=== PATIENT | female | born 1950 | race Hispanic/Latino ===

== ENCOUNTER → 2019-07-02 | Outpatient (CLI) | payer MEDICARE | END | disposition home or self-care (01) | LOC: OIH 13:22 | PROVIDERS: ATTEND Internal Medicine | DX: M77.32 Calcaneal spur, left foot (principal); M19.072 Primary osteoarthritis, left ankle and foot; M79.89 Other specified soft tissue disorders | CPT/HCPCS: 73620 ==

== ENCOUNTER → 2025-06-01 | Outpatient (CLI) | payer MEDICARE ==
--- NOTE | 2025-06-01 18:09 | HMCIMG ---
EXAM: CR Chest, 2 View. CLINICAL HISTORY: ASSESS FOR ATHEROSCLEROSIS OF AORTA COMPARISON: None provided. FINDINGS: LUNGS: The lungs show no infiltrate or other acute finding. PLEURAL SPACES: No evidence of pleural effusion or pneumothorax. MEDIASTINUM: Cardiac size and mediastinal contours within normal limits. BONES: No acute osseous abnormality. IMPRESSION: No acute cardiopulmonary pathology is evident. Aorta is atherosclerotic /[place]
== END | disposition home or self-care (01) ==
LOC: RAH 15:00
PROVIDERS: ATTEND Internal Medicine
DX: I70.0 Atherosclerosis of aorta (principal); R07.89 Other chest pain
CPT/HCPCS: 71046

== ENCOUNTER 2025-08-18 06:00 | Observation (INO) | payer MEDICARE ==
[2025-08-17 13:44] VITALS: BP 136/60; PULSE 81; RESP 18; TEMP 98.2
--- NOTE | 2025-08-17 13:44 | NUR ---
PREOP PT INSTRUCTED ON INCENTIVE SPIROMETRY BY NOEMY ELIZABETH
[2025-08-17 14:07] LABS: INR 0.99 (0.85-1.15)
[2025-08-17 14:08] LABS: CREATININE 0.9 mg/dL (0.5-1.0); GLOMERULAR FILTR. RATE CALC 67.0 mL/min (>90); GLUCOSE,RANDOM 55.0 mg/dL (70-105); SODIUM SERUM 142.0 mmol/L (136-145); UREA NITROGEN, BLOOD 18.0 mg/dL (7-18)
[2025-08-18] VITALS (25 sets, daily range): BP systolic 100–133; BP diastolic 50–83; PULSE 61–89; RESP 17–21; TEMP 97–98.2; O2SAT 99
[~2025-08-18] VITALS: Ht 160 cm; Wt 81.6 kg
[2025-08-18] MEDS: 0.9%NACL 1000ML 1,000 ML IV ONE (07:18)
[2025-08-18] MEDS ORDERED: PROMETHAZINE HCL 25 MG/ML 1ML AMPULE IM PRN (07:30)
[2025-08-18] MEDS ORDERED: MIDAZOLAM HCL 1 MG/ML 2ML VIAL ONE (09:22)
[2025-08-18] MEDS ORDERED: LIDOCAINE PF 100MG/5ML (2%) SYRINGE 5ML ONE (09:28)
[2025-08-18] MEDS ORDERED: CALCIUM CARB 500MG PO PRN (10:00)
[2025-08-18] MEDS ORDERED: CYCLOBENZAPRINE HCL 10 MG TABLET PO PRN (10:00)
[2025-08-18] MEDS ORDERED: FE FUMARATE/FA/MV, MIN COMB#15 1 TAB PO PRN (10:00)
[2025-08-18] MEDS ORDERED: PoTASSium chloRIDE 20MEQ ER 20 MEQ ERTAB PO PRN (10:00)
[2025-08-18] MEDS ORDERED: GLYCOPYRROLATE 0.2 MG/ML 5 ML VIAL ONE ×2 (10:17→12:34)
[2025-08-18] MEDS: TRANEXAMIC ACID 1000MG/10ML ONE (10:20)
[2025-08-18] MEDS ORDERED: NEOSTIGMINE METHYLSULFATE 1MG/ML IV ONE (12:33)
[2025-08-18] MEDS: ARTIFICAL TEARS SOL 15 ML OP SCH (13:00)
[2025-08-18] MEDS: DEXTROSE 50%-WATER 50 ML DISP.SYRIN IV ONE (13:16)
--- NOTE | 2025-08-18 14:13 | HMCIMG ---
EXAM: CR RIGHT SHOULDER, 1 VIEW CLINICAL HISTORY: Shoulder surgery COMPARISON: CXR dated 06-01-2025 TECHNIQUE: 1 view of the right shoulder. FINDINGS: Bones: There is reduced bone density. Total arthroplasty of the right shoulder is seen. No hardware break or periprosthetic lucency is seen. No fracture or subluxation of visualized bones and ribs. No sclerotic or destructive changes observed. Joints: Osteophytes are seen at the right acromioclavicular joint. Lucency projected over the right shoulder joint with widening of joint space. Soft tissues: Lucency projected over distal clavicle and tracking towards base of neck Mild soft tissue swelling in deltoid region. Included chest: The right costophrenic angle is blunt, suggestive of mild pleural effusion. IMPRESSION: 1. Total replacement of the right shoulder with no hardware break or periprosthetic lucency. 2. Lucency projected over the right shoulder joint and tracking towards base of neck - may represent post op shoulder joint effusion and soft tissue edematous changes. 3. As compared to CXR dated 06-01-2025, there is mild blunting of the right CP angle may represent a mild right pleural effusion. 4. Mild degenerative changes at acromioclavicular joint. /[place]
[2025-08-18] MEDS: 0.9%NACL 1000ML 1,000 ML IV SCH (15:05)
--- NOTE | 2025-08-18 20:24 | OP ---
Operative Note: DATE OF PROCEDURE: 08/18/25 SURGEON: KAN RUIZ MD CHICK SEXER: LORNA Gatica ANESTHESIA: General and interscalene block ANESTHESIOLOGIST/SOLUTIONS MANAGER: BRIANA Rajan PREOPERATIVE DIAGNOSIS: Right glenohumeral arthritis POSTOPERATIVE DIAGNOSIS: Right glenohumeral arthritis PROCEDURE: Right reverse total shoulder arthroplasty ESTIMATED BLOOD LOSS: 200 cc COMPLICATIONS: None DRAINS: None SPECIMENS: resected bone from the humeral head not sent to pathology IMPLANTS: [employer] size 10 x 32 FX V135 humeral stem, plus three stability 135/145 cup, 32 mm centered glenosphere, +3 mm lateralized base plate with one compression and two locking screws, single cortical locking screw in the stem INDICATIONS: 74-year-old female with right shoulder pain and dysfunction secondary superior glenohumeral osteoarthritis. The patient was failing conservative management. After discussion the risk, benefits, and alternatives, the patient voluntarily agreed to undergo the aforementioned procedure. DESCRIPTION OF PROCEDURE: Patient was properly identified in the preoperative holding area. Surgical site marking was verified and surgery consent reviewed. The patient was then taken to the operating room and placed in supine position on the OR table. After induction of general anesthesia, preoperative antibiotics were given, all bony prominences were well-padded as the patient was transitioned into beachchair positioning. The right upper extremity was then prepped and draped in usual sterile fashion. Surgical time out was done verifying correct surgery, side, site, and location to be performed. We then began the procedure by making approximately 12 cm long incision over the deltopectoral interval using a 10 blade. Hemostasis was performed using Bovie electrocautery. We then dissected through the subcutaneous tissues using the Metzenbaums to identify our deltopectoral interval. We then mobilized the cephalic vein laterally as we opened the interval. We then incised the clavipectoral fascia just lateral to the conjoined tendon and placed our retractor deep to this. We identified the long head of the biceps tendon and performed a tenotomy. We then began elevating the subscapularis off of its insertion on the humeral head using Bovie electrocautery. With external rotation we brought the humeral head into view and released the capsule at the inferior aspect of the head. We released a small portion of the pectoralis off of its insertion on the humerus to allow for better exposure. We then placed our retractors protecting soft tissue. At this point we began using the sounding instruments, hand reaming up to a size 12. We pinned the cutting guide off of the handle in 30 degrees of version and performed the humeral osteotomy. We then broached up to a size 10 x 32. The calcar planer was used to clean up our cut. We placed a protective cap on the cut surface of the humerus and subluxated the humerus posteriorly. We then placed our retractors around the glenoid to provide adequate exposure of the glenoid. The labrum and long head biceps tendon were resected with Bovie electrocautery. We then used to the guide to insert our central guidepin ensuring we were far enough inferior on the glenoid face. Over the central gu idepin we reamed with the all-in-one reamer for the central peg and the faceplate. We then used the screen handler to clean up the remaining soft tissue and bone. We then thoroughly irrigated out the glenoid bone and impacted into position the glenoid baseplate. We then placed 1 compression screw and 2 locking screw in the baseplate. We noted using a freer elevator that the base plate was appropriately seated. We elected to use a 32 centered glenosphere. Glenosphere was then seated in standard fashion with the setscrew tightened. We then removed our retractors and dislocated the humerus once more. We remove the protective cap from the cut end of the humerus. We then elected to trial with a size +3 135/145 polyethylene. With this in place, we reduced the humerus and noted good stable range of motion. We then dislocated the humerus and remove the trial components. We thoroughly irrigated out the bone. We seated the final stem implant and trialed once more. The size +3 polyethylene was still appropriate so we opened the final polyethylene and implanted this in standard fashion. We then reduced the humerus once more and ensured appropriate range of motion and stability. We checked the position of the components under fluoroscopy and found him to be appropriate. We thoroughly irrigated out the wound. We then began loosely repairing the deltopectoral interval using #2 Ethibond. Subcutaneous tissue was approximated using 2-0 Vicryl. The skin was closed using a running subcuticular 3-0 Monocryl with Dermabond applied. An Optifoam dressing was applied once the Dermabond dried. The patient was then placed into a sling, awakened from anesthesia, and taken recovery room in stable condition. KAN RUIZ MD Aug 18, 2025 20:24
[2025-08-18] MEDS: VERAPAMIL HCL 240 MG SRTAB PO SCH (20:51)
[2025-08-18] MEDS: GLIMEPIRIDE 2 MG TABLET PO SCH (20:52)
[2025-08-18] MEDS: LATANOPROST 2.5 ML DROPS OP SCH (21:39)
[2025-08-19] VITALS: BP 125/80; PULSE 85; RESP 18; TEMP 98.3
[2025-08-19 04:00] VITALS: BP 116/61; PULSE 85; RESP 18; TEMP 98.2
[2025-08-19 04:45] LABS: NUCLEATED RED BLOOD CELLS 0.0 % (0.0-0.19); PLATELET COUNT (AUTO) 246.0 K/uL (130-400); RED BLOOD CELL COUNT(AUTO) 3.5 MIL/uL (4.00-5.50); RED CELL DISTRIBUTION WIDTH 15.0 % (11.0-15.5); WHITE BLOOD COUNT (AUTO) 7.2 K/uL (4.8-10.8)
[2025-08-19 04:59] LABS: CREATININE 1.0 mg/dL (0.5-1.0); GLOMERULAR FILTR. RATE CALC 59.0 mL/min (>90); GLUCOSE,RANDOM 53.0 mg/dL (70-105); SODIUM SERUM 140.0 mmol/L (136-145); UREA NITROGEN, BLOOD 16.0 mg/dL (7-18)
--- NOTE | 2025-08-19 05:17 | NUR ---
FBS 54, PATIENT GIVEN ORANGE JUICE WITH CRACKERS
--- NOTE | 2025-08-19 06:53 | NUR ---
rbs 112
[2025-08-19 08:00] VITALS: O2SAT 98
[2025-08-19 08:07] VITALS: BP 123/67; PULSE 86; RESP 18; TEMP 98.2
--- NOTE | 2025-08-19 08:34 | PN ---
Ortho postop day one. This morning patient is awake alert and oriented she is still in bed. I have asked the patient to try to spend the majority of her day out of bed and she understood we will be asking nursing to assist her. Vital signs have remained stable. Afebrile. Voiding on her own. Laboratory results reviewed. Noted to have a drop in hemoglobin and hematocrit as expected after reverse shoulder arthroplasty. Patient is currently asymptomatic. We will continue to address as necessary with the protocol. Operative findings discussed with the patient. Dressing is intact. Distal neurovascular exam intact. Able to open and close hand and flex and extend risk on command. Pending therapy this morning. Anticipated discharge goal is home health/OT. Assessment: Status post right reverse shoulder arthroplasty. Asymptomatic acute postoperative blood loss anemia. Plan: Continue with Dr. Mays reverse shoulder arthroplasty protocol and discharge planning. Asymptomatic acute postoperative blood loss anemia addressed per protocol as necessary Vitals/Labs Vital Signs Date Time Temp Pulse Resp B/P (MAP) Pulse Ox O2 Delivery O2 Flow Rate FiO2 08/19/25 08:07 98.2 86 18 123/67 98 Room Air 08/18/25 19:40 0 21 Laboratory Tests 08/19/25 04:13 Medications Current Medications Cefazolin Sodium 2 gm STK-MED ONCE .ROUTE Last administered on 08/18/25at 10:00; Start 08/18/25 at 07:18; Stop 08/18/25 at 07:18; Status DC Sodium Chloride 1,000 ml @ As Directed STK-MED ONCE IV; Start 08/18/25 at 07:18; Stop 08/18/25 at 07:18; Status DC Ondansetron HCl 4 mg AD PRN IVP; Start 08/18/25 at 07:30; Stop 08/18/25 at 13:49; Status DC Metoclopramide HCl 10 mg AD PRN IVP; Start 08/18/25 at 07:30; Stop 08/18/25 at 13:49; Status DC Promethazine HCl 25 mg AD PRN IM; Start 08/18/25 at 07:30; Stop 08/18/25 at 13:49; Status DC Ketorolac Tromethamine 30 mg AD PRN IV; Start 08/18/25 at 07:30; Stop 08/18/25 at 13:49; Status DC Morphine Sulfate 2 mg AD PRN IVP; Start 08/18/25 at 07:30; Stop 08/18/25 at 13:49; Status DC Fentanyl Citrate 25 mcg Q5MIN PRN IVP; Start 08/18/25 at 07:30; Stop 08/18/25 at 13:49; Status DC Naloxone HCl 0.1 mg AD PRN IVP; Start 08/18/25 at 07:30; Stop 08/18/25 at 13:49; Status DC Midazolam HCl 2 mg STK-MED ONCE .ROUTE; Start 08/18/25 at 09:22; Stop 08/18/25 at 09:22; Status DC Lidocaine HCl 100 mg STK-MED ONCE .ROUTE; Start 08/18/25 at 09:28; Stop 08/18/25 at 09:28; Status DC Propofol 200 mg STK-MED ONCE IV; Start 08/18/25 at 09:28; Stop 08/18/25 at 09:28; Status DC Rocuronium [place] 50 mg STK-MED ONCE .ROUTE; Start 08/18/25 at 09:29; Stop 08/18/25 at 09:29; Status DC Fentanyl Citrate 100 mcg STK-MED ONCE .ROUTE; Start 08/18/25 at 09:29; Stop 08/18/25 at 09:29; Status DC Sodium Chloride 1,000 ml @ 100 mls/hr Q10H IV Last administered on 08/18/25at 15:05; Start 08/18/25 at 10:00; Stop 08/19/25 at 09:59 Polyethylene Glycol 17 gm DAILY PO; Start 08/19/25 at 09:00; Stop 09/18/25 at 08:59 Bisacodyl 10 mg DAILY PRN RC; Start 08/21/25 at 10:00; Stop 09/20/25 at 09:59 Ketorolac Tromethamine 15 mg Q6H PRN IV; Start 08/18/25 at 10:00; Stop 08/23/25 at 09:59 Multivitamins/Iron 1 tab DAILY PRN PO; Start 08/18/25 at 10:00; Stop 09/17/25 at 09:59 Ondansetron HCl 4 mg Q6H PRN IVP; Start 08/18/25 at 10:00; Stop 09/17/25 at 09:59 Calcium Carbonate 500 mg Q12H PRN PO; Start 08/18/25 at 10:00; Stop 09/17/25 at 09:59 Cefazolin Sodium 2 gm Q8H IVP Last administered on 08/18/25at 22:51; Start 08/18/25 at 15:00; Stop 08/18/25 at 23:01; Status DC Cyclobenzaprine HCl 5 mg Q8H PRN PO; Start 08/18/25 at 10:00; Stop 09/17/25 at 09:59 Docusate Sodium 100 mg BID PO Last administered on 08/18/25at 20:52; Start 08/18/25 at 21:00; Stop 09/17/25 at 20:59 Ketorolac Tromethamine 15 mg Q8H IV Last administered on 08/19/25at 01:51; Start 08/18/25 at 10:00; Stop 08/19/25 at 02:01; Status DC Potassium Chloride 100 ml @ 100 mls/hr AD PRN IV; Start 08/18/25 at 10:00; Stop 09/17/25 at 09:59 Potassium Chloride 20 meq AD PRN PO; Start 08/18/25 at 10:00; Stop 09/17/25 at 09:59 Potassium Chloride 20 meq AD PRN PO; Start 08/18/25 at 10:00; Stop 09/17/25 at 09:59 Tramadol HCl 50 mg Q6H PRN PO; Start 08/18/25 at 10:00; Stop 08/23/25 at 09:59 Acetaminophen/ Hydrocodone Bitart Q4H PRN PO; Start 08/18/25 at 10:00; Stop 08/23/25 at 09:59 Celecoxib 200 mg BID PO Last administered on 08/18/25at 20:52; Start 08/18/25 at 21:00; Stop 09/17/25 at 20:59 Hydroxychloroquine Sulfate 200 mg BID PO Last administered on 08/18/25at 20:53; Start 08/18/25 at 21:00; Stop 09/01/25 at 20:59 Latanoprost 1 DROP HS OP Last administered on 08/18/25at 21:39; Start 08/18/25 at 21:00; Stop 09/17/25 at 20:59 Metformin HCl 1,000 mg BID PO Last administered on 08/18/25at 20:51; Start 08/18/25 at 21:00; Stop 09/17/25 at 20:59 Verapamil HCl 240 mg BID PO Last administered on 08/18/25at 20:51; Start 08/18/25 at 21:00; Stop 09/17/25 at 20:59 Artificial Tears QID OP Last administered on 08/18/25at 20:53; Start 08/18/25 at 13:00; Stop 09/17/25 at 12:59 Home Med (Cholecalciferol (Vitamin D3) (Vitamin D3)... DAILY PO; Start 08/19/25 at 09:00; Stop 09/18/25 at 08:59 Home Med (Estradiol 1 EACH) WEEKLY TD; Start 08/18/25 at 10:00; Stop 09/17/25 at 09:59 Home Med (Fluticasone/ Salmeterol (Adv... BID IH; Start 08/18/25 at 21:00; Stop 09/17/25 at 20:59 Glimepiride 4 mg BID PO Last administered on 08/18/25at 20:52; Start 08/18/25 at 21:00; Stop 09/17/25 at 20:59 Losartan Potassium 100 mg DAILY PO; Start 08/19/25 at 09:00; Stop 09/18/25 at 08:59 Home Med (Vit A,C & E/ Lutein/Minerals (Ocuvite Tabl... DAILY PO; Start 08/19/25 at 09:00; Stop 09/18/25 at 08:59 Atorvastatin Calcium 40 mg HS PO Last administered on 08/18/25at 20:53; Start 08/18/25 at 21:00; Stop 09/17/25 at 20:59 Ephedrine Sulfate 50 mg STK-MED ONCE .ROUTE; Start 08/18/25 at 10:01; Stop 08/18/25 at 10:01; Status DC Glycopyrrolate 1 mg STK-MED ONCE .ROUTE; Start 08/18/25 at 10:17; Stop 08/18/25 at 10:17; Status DC Tranexamic Acid 1,000 mg STK-MED ONCE .ROUTE Last administered on 08/18/25at 10:20; Start 08/18/25 at 10:25; Stop 08/18/25 at 10:25; Status DC Neostigmine Methylsulfate 10 mg STK-MED ONCE IV; Start 08/18/25 at 12:33; Stop 08/18/25 at 12:33; Status DC Glycopyrrolate 1 mg STK-MED ONCE .ROUTE; Start 08/18/25 at 12:34; Stop 08/18/25 at 12:34; Status DC Dextrose 50 ml STK-MED ONCE IV Last administered on 08/18/25at 13:16; Start 08/18/25 at 12:58; Stop 08/18/25 at 12:58; Status DC Ketorolac Tromethamine 15 mg STK-MED ONCE .ROUTE; Start 08/18/25 at 13:15; Stop 08/18/25 at 13:16; Status DC [facility] Aug 19, 2025 08:34
[2025-08-19] MEDS: MINERALS PO SCH (09:00)
[2025-08-19] MEDS: (Cholecalciferol (Vitamin D3) (Vitamin D3) 25 MCG) PO SCH (09:00)
[2025-08-19] MEDS: LUTEIN PO SCH (09:00)
[2025-08-19] MEDS: [UNRECOGNIZED DRUG - OTHER] PO SCH (09:00)
[2025-08-19] MEDS: VIT A C PO SCH (09:00)
--- NOTE | 2025-08-19 09:03 | NUR ---
report given to rishi carter. all questions and concerns answered.
[2025-08-19] MEDS: HYDROcodone/APAP 5/325 1 TAB TABLET PO PRN (09:45)
--- NOTE | 2025-08-19 11:00 | NUR ---
JUANP CM MET WITH PT THIS MORNING INITIAL ASSESSMENT DONE. PATIENT IS INDEPENDENT PRIOR TO SURGERY, LIVES AT HOME WITH HER . PATIENT VERBALIZED SHE HAS A CANE THAT HER BROTHER OWNED PREVIOUSLY THAT SHE USES OCCASIONALLY, GLUCOMETER, TAKES PO MED FOR DM, BPM. DENIES ANY OTHER EQUIPMENT/SERVICES. FEELS SAFE TO GO BACK HOME, STILL DRIVE, ABLE TO ASSIST WITH TRANSPORTATION AND NEEDS. DISCUSSED MD RECOMMENDATIONS FOR HOME W/HH, PT AGREEABLE, CONSENT SIGNED MALENA FOR [facility]. DCP HOME W/HH ONCE APPROVED. CM TO CONTINUE TO FOLLOW UP.
[2025-08-19 11:55] VITALS: BP 142/61; PULSE 94; RESP 18; TEMP 98
[2025-08-19] MEDS: PoTASSium chl 10% ELIXIR 20MEQ 20 MEQ/15 ML UDCUP PO PRN (14:40)
[2025-08-19 16:12] VITALS: BP 98/62; PULSE 79; RESP 20; TEMP 97.9
--- NOTE | 2025-08-19 16:20 | NUR ---
DISCHARGE NOTE Patient IV and ID bands removed. Discharge instructions, medications and follow up appointments reviewed with patient. Personal belongings packed. Patient taken down via wheelchair to private vehicle.
--- NOTE | 2025-08-19 21:48 | PN ---
PROGRESS NOTE PROGRESS NOTE DATE OF PROGRESS NOTE: 08/19/25 SUBJECTIVE: No new complaints VITAL SIGNS Vital Signs Date Time Temp Pulse Resp B/P (MAP) Pulse Ox O2 Delivery O2 Flow Rate FiO2 08/19/25 16:12 97.9 79 20 98/62 98 Room Air 08/19/25 08:00 0 21 PHYSICAL EXAM: HEENT atraumatic normocephalic head Neck is supple Lungs are clear to auscultation percussion Heart was heard no murmur Abdomen soft Extremities no pedal edema LABORATORY: Laboratory Result(s) Test 08/19/25 04:13 08/19/25 05:12 08/19/25 06:31 08/19/25 10:45 White Blood Count 7.2 K/uL (4.8-10.8) Red Blood Count 3.50 MIL/uL (4.00-5.50) Hemoglobin 9.4 g/dL (12.0-16.0) Hematocrit 29.5 % (36-48) Mean Corpuscular Volume 84.3 fL (79-99) Mean Corpuscular Hemoglobin 26.9 pg (27.0-33.0) Mean Corpuscular Hemoglobin Concent 31.9 g/dL (32.0-36.0) Red Cell Distribution Width 15.0 % (11.0-15.5) Platelet Count 246 K/uL (130-400) Mean Platelet Volume 10.1 fL (7.5-10.5) Nucleated Red Blood Cells 0.0 % (0.0-0.19) Sodium Level 140 mmol/L (136-145) Potassium Level 3.5 mmol/L (3.5-5.1) Chloride Level 106 mmol/L (101-111) Carbon Dioxide Level 25 mmol/L (21-32) Blood Urea Nitrogen 16 mg/dL (7-18) Creatinine 1.0 mg/dL (0.5-1.0) Glomerular Filtration Rate Calc 59 mL/min (>90) Random Glucose 53 mg/dL (70-105) Total Calcium 8.3 mg/dL (8.5-10.1) Whole Blood Glucose 54 MG/DL (70-110) 112 MG/DL (70-110) 123 MG/DL (70-110) Test 08/19/25 12:35 08/19/25 15:46 Whole Blood Glucose 104 MG/DL (70-110) 121 MG/DL (70-110) PLAN: Status post shoulder arthroplasty stable Osteoarthritis patient stable Hypertension stated RUBY RAPHAEL MD Aug 19, 2025 21:48
--- NOTE | 2025-08-25 22:54 | HMCIMG ---
Fluoroscopy is utilized for the procedure. The total fluoroscopy time is 14.6 s. The total dose area product is 0.98 mGy. The interpreting radiologist was not present during the procedure. /[place]
== END 2025-08-19 18:20 | disposition home health service (06) ==
LOC: DAH 06:00 → DAHIP 09:33 → 4BH 14:00
PROVIDERS: ADMIT Student in an Organized Health Care Education/Training Program; ATTEND Student in an Organized Health Care Education/Training Program
DX: M19.011 Primary osteoarthritis, right shoulder (principal); M25.511 Pain in right shoulder; D62 Acute posthemorrhagic anemia; I10 Essential (primary) hypertension; E66.9 Obesity, unspecified; Z68.31 Body mass index [BMI] 31.0-31.9, adult; Z79.899 Other long term (current) drug therapy; Z98.890 Other specified postprocedural states
CPT/HCPCS: 80048 ×2; 85610; 85730; 84134; 86140; 36415 ×2; 87641; 23472; 96374; 96376 ×2; 96375; 82948 ×9; 73020; 73030; 97161; 97116 ×2; 97530 ×3; 85027; G0378 ×33; A4223 ×2; A4600; C1776 ×3; C1713 ×5; A4663; J7030 ×3; J3010; J3490 ×5; J7070; J2003; J2250; J2704; J2710; J1885 ×4; J0690 ×3; A4930; A4649; A6254; A5120; A4215; A4213; A4222; A4221; A4216; 76000